=== PATIENT | female | born 1990 | race Caucasian/White ===

== ENCOUNTER 2023-11-03 12:42 | Emergency (ER) | payer SELFPAY ==
[2023-11-03] MEDS ORDERED: fentaNYL 50 mcg/mL 1 mL Vial ONE ×2 (13:27→14:01)
[2023-11-03] MEDS ORDERED: Bupivacaine PF 0.5% 30 ML VIAL ONE (13:27)
[2023-11-03] MEDS ORDERED: Lidocaine 1% PF 5 ML VIAL ONE (13:53)
== END 2023-11-03 15:00 | disposition home or self-care (01) ==
LOC: MADERS 12:42
DX: S53.125A Posterior dislocation of left ulnohumeral joint, initial encounter (principal); F17.210 Nicotine dependence, cigarettes, uncomplicated; F17.290 Nicotine dependence, other tobacco product, uncomplicated; Y04.8XXA Assault by other bodily force, initial encounter
CPT/HCPCS: 96374; 96376; J0665; J3010